=== PATIENT | male | born 1965 | race Caucasian/White ===

== ENCOUNTER → 2017-06-05 | Outpatient (CLI) | payer BC | END | disposition home or self-care (01) | LOC: RAD 14:55 | DX: M16.12 Unilateral primary osteoarthritis, left hip (principal); M19.011 Primary osteoarthritis, right shoulder; M75.91 Shoulder lesion, unspecified, right shoulder; J84.10 Pulmonary fibrosis, unspecified; M25.551 Pain in right hip ==